=== PATIENT | male | born 1975 | race Caucasian/White ===

== ENCOUNTER 2022-08-04 07:20 | Outpatient (CLI) | payer BC, SELFPAY | END 2022-08-04 07:21 | disposition home or self-care (01) | LOC: NFLDREF 08-05 03:28 | PROVIDERS: PCP Family Medicine; Referring Provider Family Medicine; Visit Provider Family Medicine | DX: Z13.1 Encounter for screening for diabetes mellitus (principal); Z13.6 Encounter for screening for cardiovascular disorders | CPT/HCPCS: 80053; 80061 ==

== ENCOUNTER 2023-08-14 11:29 | Emergency (ER) | payer BC, SELFPAY ==
[2023-08-14 11:40] VITALS: BP 158/108; PULSE 115; RESP 18; TEMP 37.6; O2SAT 98; BMI 23.7
--- NOTE | 2023-08-14 12:02 | ED.GENADULT ---
HPI - General Adult General Chief complaint: Extremity Pain/Injury, Lower Stated complaint: right knee infection Time Seen by Provider: 08/14/23 11:43 Source: patient Mode of arrival: ambulatory Limitations: no limitations History of Present Illness HPI narrative: 47-year-old male coming in today with concerns of infection. Patient noticed that on Tuesday his knee started to turn red and felt uncomfortable. He was seen at the [facility] yesterday and diagnosed with cellulitis and bursitis and started on Keflex. He has been on antibiotics for 24 hours now. He feels that the redness is increasing. He denies any systemic symptoms or increasing pain to the knee. Related Data Previous Rx's Medication Instructions Recorded sulfamethoxazole 800 1 tab PO BID 7 days #14 tabs 08/14/23 mg-trimethoprim 160 mg tablet (Bactrim DS) Allergies Allergy/AdvReac Type Severity Reaction Status Date / Time No Known Drug Allergies Allergy Verified 08/09/22 08:46 Review of Systems Status of ROS: Reports: 10 or more systems reviewed and unremarkable except as noted in History and below PFSH [facility] Social History Smoking Status: Never smoker How often do you have a drink containing alcohol: 2-3 times a week How many standard drinks containing alcohol do you have on a typical day: 1 or 2 How often do you have six or more drinks on one occasion: Never AUDIT-C Alcohol total score: 3 Non-prescribed substance use: denies use Little interest or pleasure in doing things: not at all Feeling down, depressed, or hopeless: several days Exam Narrative: Exam Narrative: Well-nourished well-developed patient , slightly anxious Alert and oriented. Answers questions appropriately. Mood and affect are appropriate. Thoughts are goal oriented and rational. No tangential or magical thinking noted. Patient speaks in full sentences without needing to catch his breath. He does not appear ill or toxic. Patient tachycardic upon arrival, however repeat pulse was 96. HEENT: Normocephalic atraumatic. Pupils are equally round reactive to light. Extraocular muscles are intact. Conjunctivae are moist without any icterus noted. Moist mucous membranes. Extremities: Patient has erythema over the anterior right knee that extends down into the lower leg up into the thigh. He has no pain with passive range of motion. Prepatellar bursa appears swollen. Const: Vital Signs, click to edit/add: Vital Signs - 24 hr 08/14/23 11:40 08/14/23 12:36 08/14/23 12:40 Temperature 99.6 F Pulse Rate [Right Pulse Oximeter] 115 H 103 H 96 Respiratory Rate 18 16 Blood Pressure [Ri ght Upper Arm] 158/108 H 125/85 Pulse Oximetry 98 99 99 Oxygen Delivery Me thod Room Air Room Air Room Air Course Course ED Course: Outline is drawn over area of erythema. Blood cultures, [place] [address]. Normal lactate. IM Rocephin given in the ED today. Consultation with Megan Hastings, who recommends follow-up in 24 hours. Will discharge the patient home on Bactrim for MRSA coverage, as well as the Keflex. Vital Signs Vital signs: Initial Vital Signs Temperature 99.6 F 08/14/23 11:40 Temperature Source Temporal Artery Scan 08/14/23 11:40 Pulse Rate 115 H 08/14/23 11:40 Respiratory Rate 18 08/14/23 11:40 Blood Pressure 158/108 H 08/14/23 11:40 Blood Pressure Mean 124 H 08/14/23 11:40 Blood Pressure Position Sitting 08/14/23 11:40 Pulse Oximetry 98 08/14/23 11:40 Oxygen Delivery Method Room Air 08/14/23 11:40 Vital Signs Temperature 99.6 F 08/14/23 11:40 Pulse Rate 115 H 08/14/23 11:40 Respiratory Rate 18 08/14/23 11:40 Blood Pressure 158/108 H 08/14/23 11:40 Pulse Oximetry 98 08/14/23 11:40 Oxygen Delivery Method Room Air 08/14/23 11:40 Temperature 99.6 F 08/14/23 11:40 Pulse Rate 96 08/14/23 12:40 Respiratory Rate 16 08/14/23 12:40 Blood Pressure 125/85 08/14/23 12:40 Pulse Oximetry 99 08/14/23 12:40 Oxygen Delivery Method Room Air 08/14/23 12:40 Medications Administered Medications: Generic Name Dose Route Start Last Admin Trade Name Freq PRN Reason Stop Dose Admin Lidocaine HCl 2.1 ml 08/14/23 12:01 08/14/23 12:36 Lidocaine 1% 5 Ml (Pf) 5 Ml Vial IM 2.1 ml DIRECTED PRN Administration Pain Discontinued Medications Generic Name Dose Route Start Last Admin Trade Name Eddieq PRN Reason Stop Dose Admin Ceftriaxone Sodium 1 gm 08/14/23 12:01 08/14/23 12:35 Ceftriaxone 1 Gm Vial IM 08/14/23 12:02 1 gm ONCE ONE Administration Medical Decision Making MDM Narrative Medical decision making narrative: 47-year-old male with cellulitis and probable preseptal bursitis. Add Bactrim. Patient will follow-up in the orthopedic clinic in 24 hours. Lab Data Lab results reviewed: Yes I reviewed the patient's lab results Labs: Lab Results 08/14/23 Range/Units 12:18 WBC 17.13 H (4.50-11.00) K/uL RBC 4.94 (4.30-5.90) m/uL Hgb 14.8 (13.5-17.5) gm/dL Hct 43.5 (37.0-53.0) % MCV 88 (80-100) fL MCH 30 (26-34) pg MCHC 34 (32-36) gm/dL RDW Coeff of Pedro 12.5 (11.5-15.5) % Plt Count 277 (140-440) K/uL Neut % (Auto) 83.2 H (42.0-72.0) % Lymph % (Auto) 9.0 L (20-44) % [place] % (Auto) 7.4 (0.0-11.0) % Eos % (Auto) 0.0 (0.0-7.0) % Baso % (Auto) 0.2 (0.0-3.0) % Neut # (Auto) 14.30 H (1.7-7.0) K/uL Lymph # (Auto) 1.50 (0.90-2.90) K/uL [place] # (Auto) 1.30 H (0.00-0.90) K/UL Eos # (Auto) 0.00 (0.00-0.50) K/uL Baso # (Auto) 0.00 (0.00-0.30) K/uL Abs Immat Gran (auto) 0.00 (0.00-0.30) K/uL Imm/Tot Granulo (auto) 0.2 % Lactate 1.2 (0.5-1.9) mmol/L Discharge Plan Discharge Clinical Impression: Cellulitis Patient Disposition: Home, Self-Care Condition: Stable Additional Instructions: Continue cephalexin as prescribed. Start Bactrim along with the cephalexin. Follow-up with the orthopedic team in [facility] in 24 hours or less. Call the orthopedic clinic 1st thing in the morning, phone number will be provided to you. Asked to see Megan Hastings. Return to the ER if you develop a fever, vomiting or worsening knee pain. Prescriptions: New sulfamethoxazole-trimethoprim [Bactrim DS] 800-160 mg tablet 1 tab PO BID 7 Days Qty: 14 0RF Follow Up/Referrals: Earnest Harrell MD [Primary Care Provider] - Stand Alone Forms: [email or web address] Info Instructions
--- OUTSIDE RECORDS SUMMARY | 2023-08-14 12:03 | XMS_ITS | Clinical Summary ---
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 Name Role Phone Pcp, No Primary Care Provider Unavailabl e Allergies No known active allergies Medications No known medications Immunizations Name Administration Dates Next Due Tdap 05/21/2003 Social History Tobacco Use Types Packs/Day Years Used Date Smoking Tobacco: Never Smokeless Tobacco: Never Tobacco Cessation:Counseling Given: Yes Alcohol Use Standard Drinks/Week Comments Yes 0 (1 standard drink = 0.6 oz pur e alcohol) rare Sex and Gender Information Value Date Recorded Sex Assigned at Not on file Gender Identity Not on file Sexual Orientation Not on file Obstetrics History Last Filed Vital Signs Vital Sign Reading Time Taken Comments Blood Pressure 124/83 12/19/2013 2:37 PM CDT Pulse 72 12/19/2013 2:37 PM CDT Temperature 36.8 ??C (98.3 ??F) 12/19/2013 2:37 PM CD T Respiratory Rate - - Oxygen Saturation 99% 12/19/2013 2:37 PM CDT Inhaled Oxygen Concentration - - Weight 73.1 kg (161 lb 3.2 oz) 12/19/2013 2:37 P M CDT Height 178.4 cm (5' 10.24) 12/19/2013 2:37 PM C DT Body Mass Index 22.97 12/19/2013 2:37 PM CDT Plan of Treatment Health Maintenance Due Date Last Done Comments Depression screening for age 12+ 1987 HIV for age 15-65 11/28/1990 BMI (ht and wt on same day) for age 18+ 11/28/1993 Hepatitis C screening for ag e 18-79 11/28/1993 Tetanus booster 05/21/2013 05/21/2003, 05/21/2003 Colonoscopy through age 75 11/28/2020 Lipids for age 45-75 11/28/2020 COVID-19 vaccine series ( - 2022-24 season) 2023 Influenza for age 9-49 01/08/2024 Tdap Completed 05/21/2003 Pneumococcal series for age 6-64 Aged Out No longer eligible b ased on patient's age to complete this topic Care Teams Metal Crafts Teacher Relationship Specialty Start Date End Date Pcp, No . PCP - General 04/18/15
[2023-08-14 12:31] LABS: Lactate* 1.2 mmol/L (0.5-1.9)
[2023-08-14] MEDS: cefTRIAXone 1 GM VIAL IM (12:35)
[2023-08-14 12:36] VITALS: PULSE 103; O2SAT 99
[2023-08-14] MEDS: LIDOCAINE 1% 5 ml (pf) 5 ML VIAL 2.1 ML IM (12:36)
[2023-08-14 12:37] LABS: Basophils Percent Auto 0.2 % (0.0-3.0); Hematocrit 43.5 % (37.0-53.0); Hemoglobin* 14.8 gm/dL (13.5-17.5); Immature Granulocytes Pct Auto 0.2 %; Mean Corpuscular HGB Conc 34 gm/dL (32-36); Mean Corpuscular Hemoglobin 30 pg (26-34); Mean Corpuscular Volume 88 fL (80-100); Monocytes Percent Auto 7.4 % (0.0-11.0); Neutrophils Percent Auto 83.2 % (42.0-72.0); Platelet Count* 277 K/uL (140-440); RDW Coefficient of Variation % 12.5 % (11.5-15.5); Red Blood Count 4.94 m/uL (4.30-5.90); White Blood Count* 17.13 K/uL (4.50-11.00)
[2023-08-14 12:40] VITALS: BP 125/85; PULSE 96; RESP 16; O2SAT 99
[2023-08-14 13:00] LABS: Slide Review Reflex No
== END 2023-08-14 13:20 | disposition home or self-care (01) ==
PROVIDERS: Emergency Provider Family Medicine; PCP Family Medicine
DX: L03.115 Cellulitis of right lower limb (principal)
CPT/HCPCS: 36415; 83605; 85025; 87040; 96372; 99283; 99284; J0696

== ENCOUNTER 2023-08-18 15:19 | Outpatient (CLI) | payer BC, SELFPAY ==
--- OUTSIDE RECORDS SUMMARY | 2023-08-18 15:24 | XMS_ITS | Clinical Summary ---
Author Name Unknown Organization [facility] Address [place], [place] [address] Care Team Providers Care Tub Puller Name Role Phone Pcp, No Primary Care [...] age to complete this topic Care Teams Tub Puller Relationship Specialty Start Date End Date Pcp, No . PCP - General 04/18/15
[2023-08-18 22:03] LABS: Mononuclear WBC Body Fluid* 6 %; Polynuclear WBC Body Fluid* 94 %; RBC, Body Fluid* 97000 Cells/uL
[2023-08-18 22:20] LABS: BF Clarity* Cloudy; BF Color Grossly Bloody; BF Total Volume* 5
== END 2023-08-18 15:20 | disposition home or self-care (01) ==
PROVIDERS: PCP Family Medicine; Visit Provider Physician Assistant Surgical
DX: M70.41 Prepatellar bursitis, right knee (principal); B95.61 Methicillin susceptible Staphylococcus aureus infection as the cause of diseases classified elsewhere
CPT/HCPCS: 87070; 87075; 87186; 87205; 89051; 89060

== ENCOUNTER 2024-07-16 10:30 | Outpatient (CLI) | payer BC, SELFPAY | END 2024-07-16 10:31 | disposition home or self-care (01) | LOC: NFLDREF 07-18 05:17 | PROVIDERS: PCP Family Medicine; Referring Provider Family Medicine; Visit Provider Family Medicine | DX: Z13.220 Encounter for screening for lipoid disorders (principal); Z13.1 Encounter for screening for diabetes mellitus | CPT/HCPCS: 80061; 82947 ==

== ENCOUNTER 2024-08-06 09:40 | Outpatient (CLI) | payer BC, SELFPAY ==
--- NOTE | 2024-08-06 10:58 | P.ANES_ITS ---
Anesthesia Charges Start Date/Time Anesthesia Start Date: 08/06/24 Anesthesia Start Time: 10:30 Stop Date/Time Anesthesia Stop Date: 08/06/24 Anesthesia Stop Time: 10:54 Coding CPT Codes CPT Codes: ANES LWR INTST SCR COLSC - 97025 ([id number]) P1 - NORMAL HEALTHY PATIENT, QZ - MANAGER COMMISSION SVC W/O TELECOM SPECIALIST BY
--- NOTE | 2024-08-06 10:58 | W.ANESCHARGE ---
Anesthesia Charges Start Date/Time Anesthesia Start Date: 08/06/24 Anesthesia Start Time: 10:30 Stop Date/Time Anesthesia Stop Date: 08/06/24 Anesthesia Stop Time: 10:54 Coding CPT Codes CPT Codes: ANES LWR INTST SCR COLSC - 74791 ([id number]) P1 - NORMAL HEALTHY PATIENT, QZ - DEEP FAT FRY COOK SVC W/O DIRECTOR DIGITAL COMMUNICATIONS BY
== END 2024-08-06 09:41 | disposition home or self-care (01) ==
LOC: OP CLINIC 09:40
PROVIDERS: PCP Family Medicine; Visit Provider Internal Medicine
DX: Z12.11 Encounter for screening for malignant neoplasm of colon (principal)
CPT/HCPCS: 00812; 45378; J2704